=== PATIENT | female | born 1990 | race African-American/Black ===

== ENCOUNTER 2021-09-07 19:35 | Emergency (ER) | payer MEDICAID ==
[~2021-09-07] VITALS: Ht 154.9 cm; Wt 86.0 kg
[2021-09-07 19:46] VITALS: BP 143/85
[2021-09-07] MEDS ORDERED: ACETAMINOPHEN 325MG TABLET PO ONE (22:15)
[2021-09-08 00:02] LABS: BASOPHILS % 0.8 % (0.0-2.0); EOSINOPHILS % 1.8 % (0.0-5.0); HEMATOCRIT. 38.7 % (36.0-48.0); HEMOGLOBIN. 12.6 g/dL (12.0-16.0); LYMPHOCYTES % 30.8 % (20.0-50.0); MEAN CORPUSCULAR HEMOGLOBIN 25.2 pg (28.0-32.0); MEAN CORPUSCULAR VOLUME 77.3 fL (81.0-99.0); MEAN PLATELET VOLUME 8.9 fl (7.4-10.4); MONOCYTES % 8.2 % (2.0-8.0); NEUTROPHILS % 58.4 % (40.0-76.0); PLATELET 258 x1000/uL (130-400); RED BLOOD CELL COUNT 5.01 mill/uL (4.2-5.4); RED CELL DISTRIBUTION WIDTH 15.4 % (11.6-14.6)
[2021-09-08 00:07] LABS: CHLORIDE 105 mEq/L (98-107)
[2021-09-08 00:21] LABS: B-HCG QUANTITATIVE 31 mIU/mL (<3)
== END 2021-09-08 01:15 | disposition home or self-care (01) ==
LOC: ER 19:35
DX: O26.891 Other specified pregnancy related conditions, first trimester (principal); O03.9 Complete or unspecified spontaneous abortion without complication; Z3A.01 Less than 8 weeks gestation of pregnancy; Z98.890 Other specified postprocedural states
CPT/HCPCS: 36415; 76801; 80053; 84702; 85025; 86850; 86900; 99284